=== PATIENT | female | born 1970 | race Caucasian/White ===

== ENCOUNTER 2018-03-16 14:42 | Outpatient (REF) | payer OTHER, SELFPAY ==
[2018-03-16 18:53] LABS: TSH 19.21 uIU/mL (0.358-3.74)
== END 2018-03-16 15:02 ==
LOC: NCHCN 14:42
PROVIDERS: PCP Physician Assistant; Visit Provider Nurse Practitioner Family
DX: E03.9 Hypothyroidism, unspecified (principal)
CPT/HCPCS: 84443

== ENCOUNTER 2018-04-27 14:53 | Outpatient (REF) | payer OTHER, SELFPAY ==
[2018-04-27 19:56] LABS: FREE T4 1.49 ng/dL (0.76-1.46)
[2018-04-28 16:40] LABS: T3, Total 135 ng/dl (97-169)
== END 2018-04-27 15:13 ==
LOC: NCHCN 14:53
PROVIDERS: PCP Physician Assistant; Visit Provider Nurse Practitioner Family
DX: E03.9 Hypothyroidism, unspecified (principal)
CPT/HCPCS: 84439; 84443; 84480

== ENCOUNTER 2018-05-29 09:53 | Outpatient (REF) | payer OTHER, SELFPAY ==
--- NOTE | 2018-05-29 08:45 | PAPFT_PTH ---
PATIENT: Gardenia Machado LOC: [facility] U#:[id number] AGE/SX: 48/F ROOM: RE05/29/[address]: Heidy Aly : 1970 BED: DIS: 05/29/2018 SPEC #: [id number] RECD: 05/30/18 13:19 STATUS: NED REQ #: [id number] JOSEPH: 05/29/18 08:[address]: Heidy Aly DEPT: [facility] Cytology RECD BY: Tori Brewer ENTERED: 05/30/18 13:19 SP TYPE: PAPFT OTHR DR: Arnaldo Darden Tissues: 1 - CX/ENDOCX FOR PAP SMEARS Procedures: PAP THIN PREP/[facility] Screening HPV DNA PROBE Comments: [id number]
[2018-05-29 19:21] LABS: TSH 2.28 uIU/mL (0.358-3.74)
== END 2018-05-29 10:13 ==
LOC: NCHCN 09:53
PROVIDERS: PCP Physician Assistant; Visit Provider Nurse Practitioner Family
DX: E03.9 Hypothyroidism, unspecified (principal); Z12.4 Encounter for screening for malignant neoplasm of cervix; Z11.51 Encounter for screening for human papillomavirus (HPV); Z01.419 Encounter for gynecological examination (general) (routine) without abnormal findings
CPT/HCPCS: 88142; 84443; 87624

== ENCOUNTER 2018-10-30 08:59 | Outpatient (REF) | payer BC, SELFPAY ==
[2018-10-30 19:47] LABS: Calculated LDL 95 mg/dL; Cholesterol 187 mg/dL (50-200); Glucose 92 mg/dL (70-100); HDL Cholesterol 78 mg/dL (40-60); Triglyceride 74 mg/dL (30-150)
== END 2018-10-30 09:19 ==
LOC: NCHCN 08:59
PROVIDERS: PCP Physician Assistant; Visit Provider Nurse Practitioner Family
DX: E78.5 Hyperlipidemia, unspecified (principal); E03.9 Hypothyroidism, unspecified
CPT/HCPCS: 80061; 82947; 83721; 84443

== ENCOUNTER 2019-01-29 10:20 | Outpatient (REF) | payer BC, SELFPAY ==
[2019-01-29 19:44] LABS: TSH 1.25 uIU/mL (0.36-3.74)
== END 2019-01-29 10:40 ==
LOC: NCHCN 10:20
PROVIDERS: PCP Nurse Practitioner Family; Visit Provider Nurse Practitioner Family
DX: E03.9 Hypothyroidism, unspecified (principal)
CPT/HCPCS: 84443

== ENCOUNTER 2019-03-19 16:43 | Outpatient (REF) | payer OTHER, SELFPAY ==
[2019-03-19 19:34] LABS: TSH 1.31 uIU/mL (0.36-3.74)
== END 2019-03-19 17:03 ==
LOC: NCHCN 16:43
PROVIDERS: PCP Nurse Practitioner Family; Visit Provider Nurse Practitioner Family
DX: E03.9 Hypothyroidism, unspecified (principal)
CPT/HCPCS: 84443

== ENCOUNTER 2019-06-14 10:53 | Outpatient (REF) | payer OTHER, SELFPAY ==
[2019-06-14 19:15] LABS: TSH 0.49 uIU/mL (0.36-3.74)
== END 2019-06-14 11:13 ==
LOC: NCHCN 10:53
PROVIDERS: PCP Nurse Practitioner Family; Visit Provider Nurse Practitioner Family
DX: E03.9 Hypothyroidism, unspecified (principal)
CPT/HCPCS: 84443

== ENCOUNTER 2020-04-03 13:54 | Outpatient (REF) | payer OTHER, SELFPAY ==
[2020-04-03 19:27] LABS: TSH 0.15 uIU/mL (0.36-3.74)
== END 2020-04-03 14:14 ==
LOC: NCHCN 13:54
PROVIDERS: PCP Nurse Practitioner Family; Visit Provider Nurse Practitioner Family
DX: E03.9 Hypothyroidism, unspecified (principal); E78.5 Hyperlipidemia, unspecified
CPT/HCPCS: 84443

== ENCOUNTER 2020-05-21 10:11 | Outpatient (REF) | payer OTHER, SELFPAY ==
[2020-05-21 15:54] LABS: TSH 6.45 uIU/mL (0.36-3.74)
== END 2020-05-21 10:12 | disposition home or self-care (01) ==
LOC: NCHCN 10:11
PROVIDERS: PCP Nurse Practitioner Family; Visit Provider Nurse Practitioner Family
DX: E03.9 Hypothyroidism, unspecified (principal)
CPT/HCPCS: 84443

== ENCOUNTER 2020-12-24 13:07 | Outpatient (REF) | payer OTHER, SELFPAY ==
--- OUTSIDE RECORDS SUMMARY | 2020-12-24 13:12 | XMS_ITS ---
:1970 Author Care Team Providers Name Role Phone Chris Jimenez Primary Care Provider Unavailable Allergies None recorded. Medications Name Status Start Date Stop Date ? ? levothyroxine 200 mcg tablet Active ? Not available levothyroxine 25 mcg tablet Active ? Not available Microgestin FE 04/02 (28) 1 Active ? Not a vailable mg-20 mcg (21)/75 mg (7) tablet Ortho Tri-Cyclen LO (28) 0.18 mg/0.215 mg/0.25 mg-25 mcg tab let Completed 12/18/2014 12/18/2014 1 (one) Tablet: daily piroxicam 10 mg capsule Active ? Not avai lable Take 1 capsule every 12 hours by oral route as needed. Provera 10 mg tablet Completed 11/11/2014 12/11/2014 1 (one) Tablet: daily TriNessa (28) 0.18 mg(7)/0.215 mg(7)/0.25 mg(7)-35 mcg table t Completed 02/18/2010 09/23/2014 1 (one) Tablet: daily Problems Name Status Onset Date Source ? Menopausal and Postmenopausal Disorders Active ? History Screening Mammography Active ? History Cyst of Left Ovary Active ? History SNOMED CT Concept Active ? History Procedure Active ? History Follow-up Visit Active ? History Female Genitalia Finding Active ? History Procedures Date Name Performed by ? 12/28/2018 XR, Pelvis, 1 or 2 View [facility] spital Radiology (Internal) [address] [place] [address] (Work Place) Results Lab Results Date Name Specimen Result Interpretation Description Value Range Status Address ? 10/27/2016 Venipuncture BLD ? Venpn* ? ? Final [facility] (Internal) : [address] 10/27/2016 beta-HCG, S ? HCG, <2.4 2.0- Final [facility] Quantitative, Quant [IU] 6.0 Hos pital Lab Serum or Plasma /mL [IU] ( Internal): /mL [address] [place] Past Encounters 10/22/2019 Trochanteric Bursitis of Left Hip; Pain of Left Hip Joint Shani Goodwin, PT: [address] [facility] [address], [place] [address], Ph. Social History None recorded. Vaccine List None recorded. Plan of Care Reminders Provider Appointments None ? ? recorded. Lab None ? ? recorded. Referral None ? ? recorded. Procedures None ? ? recorded. Surgeries None ? ? recorded. Imaging None ? ? recorded. Vitals 03/09/2019 10:30AM Follow Up 15 Height Weight 162.56 cm 12/28/2018 08:30AM Consult 30 Height Weight BMI Blood Pressure 162.56 cm 102.51 kg 38.8 kg/m2 148/98 mm[Hg] 11/25/2016 Weight Blood Pressure 104.81 kg 130/64 mm[Hg] 10/21/2016 Height Weight Blood Pressure 165.74 cm 102.17 kg 132/80 mm[Hg] 09/23/2016 Height Weight Blood Pressure 165.74 cm 101.72 kg 110/82 mm[Hg] 11/04/2014 Height Weight Blood Pressure 165.74 cm 103.65 kg 106/92 mm[Hg] 02/18/2010 Weight Blood Pressure 110.22 kg 144/80 mm[Hg] 05/21/2009 Height Weight Blood Pressure 163.83 cm 109.77 kg 144/80 mm[Hg] 01/30/2009 Height Weight Blood Pressure 162.56 cm 111.58 kg 130/70 mm[Hg] 09/09/2005 Height Weight Blood Pressure 162.56 cm 113.4 kg 120/70 mm[Hg]
[2020-12-24 21:26] LABS: Hemoglobin A1C 5.7 % (<5.7)
[2020-12-24 21:30] LABS: ALT 31 U/L (14-59); AST 15 U/L (15-37); Albumin 4.1 g/dL (3.4-5.0); Alkaline Phosphatase 77 U/L (46-116); Anion Gap 7.5 mmol/L (3-11); BUN 15 mg/dL (7-18); Bilirubin, Total 0.5 mg/dL (0.2-1.0); CO2 27.5 mmol/L (21.0-32.0); CREATININE 0.7 mg/dL (0.55-1.02); Calculated LDL 121 mg/dL (<100); Chloride 104 mmol/L (98-107); Cholesterol 214 mg/dL (<200); Glucose 98 mg/dL (74-106); HDL Cholesterol 81 mg/dL (40-60); Sodium 139 mmol/L (136-145); TSH (W/Ref FT4) 1.99 uIU/mL (0.36-3.74); Total Protein 7.4 g/dL (6.4-8.2); Triglyceride 60 mg/dL (<150)
== END 2020-12-24 13:08 | disposition home or self-care (01) ==
LOC: NCHCN 13:07
PROVIDERS: PCP Nurse Practitioner Family; Visit Provider Nurse Practitioner Family
DX: E03.9 Hypothyroidism, unspecified (principal)
CPT/HCPCS: 80053; 80061; 83036; 84443

== ENCOUNTER 2022-01-11 19:43 | Outpatient (REF) | payer OTHER, SELFPAY ==
[2022-01-11 19:31] LABS: Hemoglobin A1C 5.6 % (<5.7)
[2022-01-11 20:08] LABS: ALT 26 U/L (14-59); AST 23 U/L (15-37); Albumin 3.8 g/dL (3.4-5.0); Alkaline Phosphatase 74 U/L (46-116); Anion Gap 9.3 mmol/L (3-11); BUN 10 mg/dL (7-18); Bilirubin, Total 0.4 mg/dL (0.2-1.0); CO2 23.7 mmol/L (21.0-32.0); CREATININE 0.7 mg/dL (0.55-1.02); Calcium 8.6 mg/dL (8.5-10.1); Chloride 106 mmol/L (98-107); Estimated GFR 103.35 (mL/min/1.73m2); Glucose 86 mg/dL (74-106); Potassium 4.4 mmol/L (3.5-5.1); Sodium 139 mmol/L (136-145); TSH 17.15 uIU/mL (0.36-3.74); Total Protein 7.5 g/dL (6.4-8.2)
== END 2022-01-11 19:44 | disposition home or self-care (01) ==
LOC: NCHCN 19:43
PROVIDERS: PCP Nurse Practitioner Family; Visit Provider Nurse Practitioner Family
DX: E03.9 Hypothyroidism, unspecified (principal); E78.5 Hyperlipidemia, unspecified; R73.03 Prediabetes
CPT/HCPCS: 80053; 83036; 84443

== ENCOUNTER 2023-01-11 13:33 | Outpatient (REF) | payer OTHER, SELFPAY ==
[2023-01-11 20:21] LABS: ALT 40 U/L (14-59); AST 23 U/L (15-37); Albumin 3.8 g/dL (3.4-5.0); Alkaline Phosphatase 82 U/L (46-116); Anion Gap 9.4 mmol/L (3-11); BUN 15 mg/dL (7-18); Bilirubin, Total 0.3 mg/dL (0.2-1.0); CO2 23.6 mmol/L (21.0-32.0); CREATININE 0.7 mg/dL (0.55-1.02); Calcium 9.2 mg/dL (8.5-10.1); Calculated LDL 116 mg/dL (<100); Chloride 104 mmol/L (98-107); Cholesterol 202 mg/dL (<200); Estimated GFR 102.71 (mL/min/1.73m2); Glucose 99 mg/dL (74-106); HDL Cholesterol 74 mg/dL (40-60); Potassium 4.6 mmol/L (3.5-5.1); Sodium 137 mmol/L (136-145); TSH (W/Ref FT4) 2.64 uIU/mL (0.36-3.74); Total Protein 7.4 g/dL (6.4-8.2); Triglyceride 63 mg/dL (<150)
== END 2023-01-11 13:34 | disposition home or self-care (01) ==
LOC: NCHCN 13:33
PROVIDERS: PCP Nurse Practitioner Family; Visit Provider Nurse Practitioner Family
DX: E03.9 Hypothyroidism, unspecified (principal); R73.03 Prediabetes
CPT/HCPCS: 80053; 80061; 84443

== ENCOUNTER 2024-01-16 10:41 | Outpatient (REF) | payer OTHER, SELFPAY ==
--- NOTE | 2024-01-16 08:30 | PAPFT_PTH ---
PATIENT: Gardenia Machado LOC: [facility]#:[id number] AGE/SX: 53/F ROOM: RE01/16/[address]: Althea Underwood : 1970 BED: DIS: 01/16/2024 SPEC #: [id number] RECD: 01/16/24 18:13 STATUS: NED REQ #: [id number] JOSEPH: 01/16/24 08:[address] Cytology RECD BY: Tori Brewer ENTERED: 01/16/24 18:14 SP TYPE: PAPFT OTHR DR: Heidy Aly Tissues: 1 - CX/ENDOCX FOR PAP SMEARS Procedures: PAP THIN PREP/[facility] Screening HPV DNA PROBE Comments: [id number] (HPV 16 & 18/45)
--- OUTSIDE RECORDS SUMMARY | 2024-01-16 10:48 | XMS_ITS | Encounter Summary ---
Author Organization [facility] Address [address] [place] [address] Care Team Providers Care Nurse Aide Evaluator Name Role Phone Unknown, Provider Primary Care Provider Unava ilable Encounter Details Date Type Department Care Team (Late st Contact Info) Description 04/17/2012 Results Only [facility] [phone] Daniella Platt PA-C [address] [place] [address] Social History Tobacco Use Types Packs/Day Years Used Date Smoking Tobacco: Never Assessed Sex and Gender Information Value Date Recorded Sex Assigned at Not on file Gender Identity Not on file Sexual Orientation Not on file documented as of this encounter Plan of Treatment Not on file documented as of this encounter Procedures Procedure Name Priority Date/Time Associated Diagnosis Comments PAP TEST- RESULT ONLY Routine 04/17/2012 0:00 EST documented in this encounter Results * PAP TEST- RESULT ONLY (04/17/2012 0:00 EST) Pathology Report: CYTOPATHOLOGY REPORT Reports generated via electronic interface contain original data; however they are lacking the format of the original report. Caution should be taken when reading/interpreti ng unformatted reports. Name: ? GARDENIA WEBSTER ? Accession #: ? [id number] : ? 1970 (Age: 42) ??F ?Collect Date: ? 04/17/2012 Location: ? [facility] ? Receive Date: ? 04/18/2012 Provider: ?DANIELLA PINEDA Copy to: ? Specimen/Source: ?Pap Test, Cervix, ThinPrep Imaging System with manual evaluation Last Menstrual Period: ? 04/08/12 Previous Gynecologic Pathology: ? HPV: + Treatment History: ? Cone biopsy: hx ? SPECIMEN ADEQUACY ? Satisfactory for Evaluation - transformation zone component present GENERAL CATEGORIZATION ? Negative for Intraepithelial Lesion or Malignancy ? Document reviewed and electronically signed by: ? Danni Driver CT(ASCP) ? Report Date: ??04/24/2012 14:41 End of Report [facility] 04/17/2012 04/18/2012 Daniella Platt PA-C PATHOLOGY ORDERABLES [facility] [address] [place] [address] documented in this encounter Visit Diagnoses Not on filedocumented in this encounter Care Teams Nurse Aide Evaluator Relationship Specialty Start Date End Date Unknown, Provider, PCP - General 02/03/09 documented as of this encounter
--- OUTSIDE RECORDS SUMMARY | 2024-01-16 10:48 | XMS_ITS | Encounter Summary ---
Author Organization [facility] Address [address] [place] [id number] Care Team Providers Care School Laboratory Technician Name Role Phone Unknown, Provider Primary Care Provider Unava ilable Encounter Details Date Type Department Care Team (Latest Contact Info) Description 11/01/2014 8:05 EDT - 11/01/2014 23:59 EDT Hospital Encounter [address] [address] Unknown, ProviderMD Discharge Disposition: Home or Self Care Social History Tobacco Use Types Packs/Day Years Used Date Smoking Tobacco: Never Assessed Sex and Gender Information Value Date Recorded Sex Assigned at Not on file Gender Identity Not on file Sexual Orientation Not on file documented as of this encounter Discharge Disposition Disposition Code Departure Means Destination Home or Self Senior Care documented in this encounter Plan of Treatment Not on file documented as of this encounter Visit Diagnoses Not on filedocumented in this encounter Care Teams School Laboratory Technician Relationship Specialty Start Date End Date Unknown, ProviderMD PCP - General 02/03/09 documented as of this encounter
--- OUTSIDE RECORDS SUMMARY | 2024-01-16 10:48 | XMS_ITS | Encounter Summary ---
Author Organization [facility] Address [address] [place] [address] Care Team Providers Care Keno Terminal Operator Name Role Phone Unknown, Provider Primary Care Provider Unava ilable Encounter Details Date Type Department Care Team (Late st Contact Info) Description 05/29/2018 Results Only [facility] [phone] Lesly Aly, DIRECTOR OF ANCILLARY SERVICES [address] [place] [address] Social History Tobacco Use Types Packs/Day Years [...] Diagnosis Comments PAP TEST- RESULT ONLY Routine 05/29/2018 0:00 EDT documented in this encounter Results * PAP TEST- RESULT ONLY (05/29/2018 0:00 EDT) Pathology Report: CYTOPATHOLOGY REPORT Reports generated via electronic interface contain original data; however they are lacking the format of the original report. Caution should be taken when reading/interpreti ng unformatted reports. Name: ? GARDENIA WEBSTER ? Accession #: ? [id number] ? : ? 1970 (Age: 48) ??F ?Collect Date: ? 05/29/2018 ? Location: ? [facility] ? Receive Date: ? 05/31/2018 ? Provider: LESLY ALY DIRECTOR OF ANCILLARY SERVICES Copy to: ? Final Report SPECIMEN ADEQUACY ? Satisfactory for Evaluation - transformation zone component absent GENERAL CATEGORIZATION ? Negative for Intraepithelial Lesion or Malignancy ?? Last Menstrual Period: 05/01/2018 Previous Gynecologic Pathology: Yes: Hx of abnormal pap Treatment History: Ablation: Uterine 2017 Other: Additional clinical information: Z01.419 Specimen/Source: ??Pap Test, Cervix, ThinPrep Imaging System with manual evaluation Document reviewed and electronically signed by: ? KRISTIN Shirley(ASCP) ? Report ??Date: 06/02/2018 08:54 HPV with Pap Test ? Date Ordered: ? 06/02/2018 ? Status: ?? Signed Out ?Date Complete: ? 06/05/2018 ? By: ??System Interface ? Date Reported: ? 06/05/2018 ? Interpretation RESULT: Negative for HPV. No E6 or E7 mRNA is detected from HPV types 16,18,31,33,35, 39,45,51,52,56,58, 59,66, and 68 by spa associate mediated amplification. Comments Document reviewed and electronically signed by: ? System Interface ? Report date: 06/05/2018 By the signature above, the attending physician certifies that he/she has personally conducted a gross and/or microscopic examination of the described specimens and rendered or confirmed the above diagnosis. End of Report [facility] 05/29/2018 05/31/2018 Lesly Aly NP PATHOLOGY ORDERABLES [facility] [address] [place] [address] documented in this encounter Visit Diagnoses Not on filedocumented in this encounter Care Teams Keno Terminal Operator Relationship Specialty Start Date End Date Unknown, Provider, PCP - General 02/03/09 documented as of this encounter
--- OUTSIDE RECORDS SUMMARY | 2024-01-16 10:48 | XMS_ITS | Clinical Summary ---
Author Organization [facility] Address [address] [place] [address] Care Team Providers Care Cam Specialist Name Role Phone Unknown, Provider MD Primary Care Provider Unava ilable Social History Tobacco Use Types Packs/Day Years Used Date Smoking Tobacco: Never Assessed Sex and Gender Information Value Date Recorded Sex Assigned at Not on file Gender Identity Not on file Sexual Orientation Not on file Plan of Treatment Health Maintenance Due Date Last Done Comments Hepatitis C Screen 1970 Hepatitis B Vaccine (1 of 3 - 19+ 3-dose series) 03/18 COVID-19 Vaccine (2022- season) 2022 Care Teams Cam Specialist Relationship Specialty Start Date End Date Unknown, Provider, PCP - General 02/03/09
--- OUTSIDE RECORDS SUMMARY | 2024-01-16 10:48 | XMS_ITS | Referral Summary ---
Author Organization [facility] Address [address] [place] [address] Care Team Providers Care Events Solutions Consultant Name Role Phone Unknown, Provider Primary Care Provider Unava ilable Social History Tobacco Use Types Packs/Day Years Used Date Smoking Tobacco: Never Assessed Sex and Gender Information Value Date Recorded Sex Assigned at Not on file Gender Identity Not on file Sexual Orientation Not on file Plan of Treatment Not on file Care Teams Events Solutions Consultant Relationship Specialty Start Date End Date Unknown, Provider, PCP - General 02/03/09
--- OUTSIDE RECORDS SUMMARY | 2024-01-16 10:48 | XMS_ITS | Encounter Summary ---
Author Organization [facility] Address [address] [place] [address] Care Team Providers Care Boarding Kennel Or Cattery Operator Name Role Phone Unknown, Provider MD Primary Care Provider Unava ilable Encounter Details Date Type Department Care Team (Late st Contact Info) Description 11/04/2014 Results Only [facility] [phone] Vincent Beltran MD [address] [place] [address] [address] [place] [address] Social History Tobacco Use Types Packs/Day Years Used Date Smoking Tobacco: Never Assessed Sex and Gender Information Value Date Recorded Sex Assigned at Not on file Gender Identity Not on file Sexual Orientation Not on file documented as of this encounter Plan of Treatment Not on file documented as of this encounter Procedures Procedure Name Priority Date/Time Associated Diagnosis Comments SURGICAL PATHOLOGY Routine 11/04/2014 9 :43 EDT documented in this encounter Results * SURGICAL PATHOLOGY (11/04/2014 9:43 EDT) Pathology Report: SURGICAL PATHOLOGY REPORT Reports generated via electronic interface contain original data; however they are lacking the format of the original report. Caution should be taken when reading/interpret ing unformatted reports. Name: ? GARDENIA WEBSTER ? Accession #: ? [id number] ? : ? 1970 (Age: 44) ??F ? Collect Date: ? 11/04/2014 ? Location: ? [facility] ? Receive Date: ? 11/06/2014 ? Provider: VINCENT BELTRAN MD Copy to: ? Final Pathologic Diagnosis: ENDOMETRIUM, BIOPSY: - ??Disordered proliferative endometrium with focal glandular and stromal breakdown. Document reviewed and electronically signed by: Layla Hair MD Report ??Date: 11/09/2014 10:51 By the signature above, the attending physician certifies that he/she has personally conducted a gross and/or microscopic examination of the described specimens and rendered or confirmed the above diagnosis. Specimen(s) Received: Endometrium Clinical History: Heavy, prolonged bleeding Gross Description: ? Received in formalin labelled with proper patient identification (initials W, M) and endometrium is an aggregate of england-pink, tissue fragments admixed with clotted blood and blood tinged mucus (3.5 x 2.5 x 0.4 cm). Submitted in toto in blocks 1-4. Tanya Mccord 11/06/2014 10:10 AM End of Report [facility] 11/04/2014 9:43 EDT 11/06/2014 9:43 EDT Vincent Beltran MD PATHOLOGY ORDERABLES Performing Organization Address City/State/[facility] Co de Phone Number [facility] [address] [place] [address] documented in this encounter Visit Diagnoses Not on filedocumented in this encounter Care Teams Boarding Kennel Or Cattery Operator Relationship Specialty Start Date End Date Unknown, Provider, PCP - General 02/03/09 documented as of this encounter
--- OUTSIDE RECORDS SUMMARY | 2024-01-16 10:49 | XMS_ITS | Encounter Summary ---
Author Organization [facility] Address [address] [place] [address] Care Team Providers Care Garment Parts Cutter Hand Name Role Phone Unknown, Provider Primary Care Provider Unava ilable Encounter Details Date Type Department Care Team (Late st Contact Info) Description 04/03/2009 Orders Only [facility] [address] [place] [address] Jones Vega MD Social History Tobacco Use Types Packs/Day Years Used Date Smoking Tobacco: Never Assessed Sex and Gender Information Value Date Recorded Sex Assigned at Not on file Gender Identity Not on file Sexual Orientation Not on file documented as of this encounter Plan of Treatment Not on file documented as of this encounter Procedures Procedure Name Priority Date/Time Associated Diagnosis Comments CYTOPATHOLOGY Routine 04/03/2009 0:00 EST documented in this encounter Results * CYTOPATHOLOGY (04/03/2009 0:00 EST) Pathology Report: CYTOPATHOLOGY REPORT ? Reports generated via electronic interface contain original data; ? however they are lacking the format of the original report. ? Caution should be taken when reading/interpreti ng unformatted reports. ? Name: ? GARDENIA WEBSTER ? Accession #: ? [id number] ? : ? 1970 (Age: 39) ??F ?Collect Date: ? 04/03/2009 ? Location: ? [facility] ? Receive Date: ? 04/04/2009 ? Provider: ?JONES B VEGA MD ? Copy to: ? Specimen/Source: ?Pap Test, Cervix/Endocervix, ThinPrep Imaging System ? with manual evaluation ? Last Menstrual Period: ? Previous Gynecologic Pathology: ? HSIL: 11/09 ? HPV: HR 11/09 ? Other: ? HPVA - HPV testing requested if ASC-US on the current ThinPrep Pap test. ? SPECIMEN ADEQUACY ? - scant squamous epithelial component secondary to excessive blood ? Satisfactory for Evaluation ? - transformation zone component present ? GENERAL CATEGORIZATION ? Epithelial Cell Abnormality ? INTERPRETATION ? Squamous Cell Abnormality - Atypical squamous cells, cannot exclude ? high grade squamous ? intraepithelial lesion (ASC-H). ? EDUCATIONAL NOTES/RECOMMENDATI ONS ? [facility] recommends following the 2006 Consensus Guidelines for the Management of Women with Abnormal Cervical Cancer Screening Tests (JLGTD, ? 2007;11(4):201-222 ). ??Consensus guidelines are available online at ? www.ASCCP.org. ? Document reviewed and electronically signed by: ? Selena L. Montesinos, MD ? Report Date: ??04/09/2009 12:02 ? End of Report ? [facility] 04/03/2009 04/04/2009 Jones Vega MD PATHOLOGY ORDERABLES [facility] [address] [place] [address] documented in this encounter Visit Diagnoses Not on filedocumented in this encounter Care Teams Garment Parts Cutter Hand Relationship Specialty Start Date End Date Unknown, Provider, PCP - General 02/03/09 documented as of this encounter
--- OUTSIDE RECORDS SUMMARY | 2024-01-16 10:49 | XMS_ITS | Encounter Summary ---
Author Organization [facility] Address [address] [place] [address] Care Team Providers Care Bessemer Bottom Maker Name Role Phone Unknown, Provider Primary Care Provider Unava ilable Encounter Details Date Type Department Care Team (Late st Contact Info) Description 02/18/2010 Results Only [facility] ([facility] [address] [place] [address] Jones Vega MD Social History Tobacco [...] Priority Date/Time Associated Diagnosis Comments CYTOPATHOLOGY Routine 02/18/2010 0:00 EST documented in this encounter Results * CYTOPATHOLOGY (02/18/2010 0:00 EST) Pathology Report: CYTOPATHOLOGY REPORT ? Reports generated via electronic interface contain original data; ? however they are lacking the format of the original report. ? Caution should be taken when reading/interpreti ng unformatted reports. ? Name: ? GARDENIA WEBSTER ? Accession #: ? [id number] ? : ? 1970 (Age: 39) ??F ?Collect Date: ? 02/18/2010 ? Location: ? [facility] ? Receive Date: ? 02/19/2010 ? Provider: JONES VEGA MD ? Copy to: ? Final Report ? SPECIMEN ADEQUACY ? Satisfactory for Evaluation ? - transformation zone component present ? - scant squamous epithelial component secondary to excessive blood ? GENERAL CATEGORIZATION ? Other, see interpretation ? INTERPRETATION ? Endometrial cells present in a woman equal to or greater than age 40. ? Negative for Intraepithelial Lesion. ? EDUCATIONAL NOTES/RECOMMENDATI ONS ? Benign appearing endometrial cells on Pap tests are usually a normal ? finding in women with regular menstrual cycles, especially if the Pap test was ?? collected during the first half of the menstrual cycle. ? There is data showing that endometrial cells on Pap tests may be associated with endometrial/uterin e abnormalities in post menopausal women or in perimenopausal women with abnormal bleeding. ? There is limited data on the significance of benign endometrial cells in post ?? menopausal women on HRT. ??Clinical correlation is recommended. ? Note: ??The Pap test is not an accurate test for the screening of endometrial ? lesions and should not be used as a follow up in patients with clinical ? suspicion of endometrial pathology. ? Previous Gynecologic Pathology: HSIL: 11/09 ? HPV: + HR HPV 11/09 ? JACQUELINE II: 1/10 ? JACQUELINE III: 1/10 ? Treatment History: Colposcopy: 1/10 ? Cone biopsy: 3/10 - no dysplasia ? Specimen/Source: ??Pap Test, Cervix/Endocervix, ThinPrep Imaging System with ? manual evaluation ? Document reviewed and electronically signed by: ? Alis Caballero, CT(ASCP)(IAC) ? Report ??Date: 02/24/2010 15:47 ? HPV with Pap Test ? Date Ordered: ? 02/24/2010 ? Status: ?? Signed Out ?Date Complete: ? 03/02/2010 ? By: ??System Interface ? Date Reported: ? 03/02/2010 ? Interpretation ? RESULT: Negative for HPV types 16, 18, 31, 33, 35, 39, 45, 51, 52, ? 56, 58, 59, and 68. ? Comments ? Document reviewed and electronically signed by: ? System Interface ? Report date: 03/02/2010 ? By the signature above, the attending physician certifies that he/she has ? personally conducted a gross and/or microscopic examination of the described ? specimens and rendered or confirmed the above diagnosis. ? End of Report ? [facility] 02/18/2010 02/19/2010 Jones Vega MD PATHOLOGY ORDERABLES [facility] [address] [place] [address] documented in this encounter Visit Diagnoses Not on filedocumented in this encounter Care Teams Bessemer Bottom Maker Relationship Specialty Start Date End Date Unknown, Provider, PCP - General 02/03/09 documented as of this encounter
--- OUTSIDE RECORDS SUMMARY | 2024-01-16 10:49 | XMS_ITS | Encounter Summary ---
Author Organization [facility] Address [address] [place] [address] Care Team Providers Care Hot Molder Name Role Phone Unknown, Provider Primary Care Provider Unava ilable Encounter Details Date Type Department Care Team (Late st Contact Info) Description 01/30/2009 Orders Only [facility] Services - [facility] ([facility]) [address] [place] [address] [phone] Jones Vega MD Social History Tobacco Use Types Packs/Day Years Used Date Smoking Tobacco: Never Assessed Sex and Gender Information Value Date Recorded Sex Assigned at Not on file Gender Identity Not on file Sexual Orientation Not on file documented as of this encounter Plan of Treatment Not on file documented as of this encounter Procedures Procedure Name Priority Date/Time Associated Diagnosis Comments HPV DETECTION, HIGH RISK TYPES Routine 01/30/2009 9:05 EST CYTOPATHOLOGY Routine 01/30/2009 0:00 EST documented in this encounter Results * HUMAN PAPILLOMA VIRUS DNA TEST (01/30/2009 9:05 EST) Specimen Description Cervix, ThinPrep vial [facility] Result Positive for one or more of HPV types 16,18,31,33,35 ,39,45,51,52,5 6,58,59, or 68. These high/intermedi ate risk HPV types are associated with dysplasia and some cervical cancers. [facility] Report Status Final 02/18/2009 [facility] 01/30/2009 9:05 EST 02/12/2009 9:05 EST Jones Vega MD MICROBIOLOGY - GENER AL ORDERABLES [facility] [address] [place] [address] * CYTOPATHOLOGY (01/30/2009 0:00 EST) Pathology Report: CYTOPATHOLOGY REPORT ? Reports generated via electronic interface contain original data; ? however they are lacking the format of the original report. ? Caution should be taken when reading/interpreti ng unformatted reports. ? Name: ? GARDENIA WEBSTER ? Accession #: ? [id number] ? : ? 1970 (Age: 38) ??F ?Collect Date: ? 01/30/2009 ? Location: ? [facility] ? Receive Date: ? 02/03/2009 ? Provider: ?JONES B VEGA MD ? Copy to: ? Specimen/Source: ?Pap Test, Cervix/Endocervix, ThinPrep Imaging System ? with manual evaluation ? Last Menstrual Period: ? Other: ? HPVDX - HPV testing requested regardless of diagnosis on current ThinPrep Pap ?? test. ? SPECIMEN ADEQUACY ? Satisfactory for Evaluation ? - transformation zone component present ? GENERAL CATEGORIZATION ? Epithelial Cell Abnormality ? INTERPRETATION ? Squamous Cell Abnormality - High grade squamous intraepithelial lesion ? (HSIL). ? EDUCATIONAL NOTES/RECOMMENDATI ONS ? ON LICENSE OF [facility] recommends following the 2006 Consensus Guidelines for the Management of Women with Abnormal Cervical Cancer Screening Tests (JLGTD, ? 2007;11(4):201-222 ). ??Consensus guidelines are available online at ? www.ASCCP.org. ? Document reviewed and electronically signed by: ? Ever Chris Sony, MD ? Report Date: ??02/11/2009 16:30 ? End of Report ? [facility] 01/30/2009 02/03/2009 Jones Vega MD PATHOLOGY ORDERABLES [facility] [address] [place] [address] documented in this encounter Visit Diagnoses Not on filedocumented in this encounter Care Teams Hot Molder Relationship Specialty Start Date End Date Unknown, Provider, PCP - General 02/03/09 documented as of this encounter
== END 2024-01-16 10:42 | disposition home or self-care (01) ==
LOC: NCHCN 10:41
PROVIDERS: PCP Nurse Practitioner Family; Visit Provider Nurse Practitioner Family
DX: Z11.51 Encounter for screening for human papillomavirus (HPV) (principal); Z01.419 Encounter for gynecological examination (general) (routine) without abnormal findings; E03.9 Hypothyroidism, unspecified
CPT/HCPCS: 88142; 84443; 87624

== ENCOUNTER 2024-04-16 15:58 | Outpatient (REF) | payer OTHER, SELFPAY ==
--- OUTSIDE RECORDS SUMMARY | 2024-04-16 16:05 | XMS_ITS | Encounter Summary ---
Author Organization [facility] Address [address] [place] [address] Care Team Providers Care Nail Technician Teacher Name Role Phone Unknown, Provider Primary Care Provider Unava ilable Encounter Details Date Type Department Care Team (Late st Contact Info) Description 01/17/2024 Lab Requisition [facility] Pathology & Laboratory Medicine - [facility] [address] [place] [address] Aylin Underwood, CLINICAL CYTOGENETICIST SCIENTIST [address] [place] [address] Encounter for gynecological examination (general) (routine) without abnormal findings; Encounter for screening for malignant neoplasm of cervix Social History Tobacco Use Types Packs/Day Years Used Date Smoking Tobacco: Never Assessed Comments Unknown Sex and Gender Information Value Date Recorded Sex Assigned at Not on file Legal Sex Female 18:47 EST Gender Identity Not on file Sexual Orientation Not on file documented as of this encounter Plan of Treatment Not on file documented as of this encounter Procedures Procedure Name Priority Date/Time Associated Diagnosis Comments PAP TEST Today 01/16/2024 8:30 EST Encounter for gynecological examination (general) (routine) without abnormal findings Encounter for screening for malignant neoplasm of cervix HUMAN PAPILLOMAVIRUS (HPV) VAGINAL DETECTION WITH GENOTYPING FOR HIGH-RISK TYPES BY PCR Today 01/16/2024 8:30 EST Encounter for gynecological examination (general) (routine) without abnormal findings Encounter for screening for malignant neoplasm of cervix documented in this encounter Results * HUMAN PAPILLOMAVIRUS (HPV) VAGINAL DETECTION WITH GENOTYPING FOR HIGH-RISK TYPES BY PCR (48:30 EST) HPV High Risk Type 16, PCR Negative Negative 02/02/2024 15:50 EST [facility] HPV High Risk type 18, PCR Negative Negative 02/02/2024 15:50 EST [facility] HPV other High Risk types, PCR Negative Negative 02/02/2024 15:50 EST [facility] Comment: The following Other High Risk HPV types were not detected: 31, 33, 35, 39, 45, 51, 52, 56, 58, 59, 66, and 68 ADDITIONAL INFORMATION Testing was performed using the salomón HPV assay ([employer] This report is intended for use in clinical monitoring and management of patients. ??It is not intended for use in medical-legal applications. This test has been modified from the technician's instructions. ??Its performance characteristics were determined by [facility] in a manner consistent with CLIA requirements. ??This test has not been cleared or approved by the U.S. Food and Drug Administration. Test Performed by: [facility] [address] [place] [address] Corporate Specialist: Shi Fowler Ph.D.; CLIA# [id number] Pap Test VAGINAL STRUCTURE / Unknown 01/16/2024 8:30 EST 01/31/2024 11:43 EST us Aylin Underwood NP MICROBIOLOGY - GENERAL ORDER MARÍA Final Result [facility] [address] [place] [address] * PAP TEST (01/16/2024 8:30 EST) Pathologist [facility] Amendment Comment This report is amended to include High Risk HPV testing results. This is an amended report which replaces the original pathology report issued on 02/02/2024. This amendment is being issued to change the submitted source of the Pap test from vaginal to cervix and/or Endocervical 03/05/2024 10:54 EST [facility] Specimens A. Cervix and/or Endocervix , ThinPrep Imaging System with Manual Evaluation 03/05/2024 10:54 [facility] Specimen Adequacy Satisfactory for Evaluation - assessment of transformation zone component not applicable ( e.g. atrophy, vaginal sample, hysterectomy) Satisfactory for Evaluation - transformation zone component present 03/05/2024 10:54 [facility] General Categorization Negative for intraepithelial lesion or malignancy 03/05/2024 10:54 [facility] Attestation . 03/05/2024 10:54 [facility] Amendment electronically signed by Martha Phan CT(ASCP) on 03/05/2024 at 1054 Amendment electronically signed by Martha Phan CT(ASCP) on 02/02/2024 at 1653 at 1330 Clinical History See below 03/05/20 10:54 [facility] Performing Lab [facility] 03/05/2024 10:54 [facility] Scanned Images 03/05/2024 10:54 [facility] HPV High Risk type 16, PCR Negative 03/05/2024 10:54 [facility] HPV High Risk type 18, PCR Negative 03/05/2024 10:54 [facility] HPV Other High Risk Types, PCR Negative The following Other High Risk HPV types were not detected: 31, 33, 35, 39, 45, 51, 52, 56, 58, 59, 66, and 68 --ADDITIONAL INFORMATION------ Testing was performed using the salomón HPV assay ([employer] This report is intended for use in clinical monitoring and management of patients. It is not intended for use in medical-legal applications. This test has been modified from the technician's instructions. Its performance characteristics were determined by [facility] in a manner consistent with CLIA requirements. This test has not been cleared or approved by the U.S. Food and Drug Administration. Test Performed by: [facility] - [address] [address] Corporate Specialist: Shi Fowler Ph.D.; CLIA# [id number] 03/05/2024 10:54 EST [facility] Pap Test CERVIX UTERI STRUCTURE / Unknown 01/16/2024 8:30 EST 01/17/2024 14:36 EST Aylin Underwood NP PATHOLOGY ORDERABLES Edited Result - Final [facility] [address] [place] [address] documented in this encounter Visit Diagnoses Diagnosis Encounter for gynecological examination (general) (routine) without abnormal findings Encounter for screening for malignant neoplasm of cervix Screening for malignant neoplasm of the cervix documented in this encounter Care Teams Nail Technician Teacher Relationship Specialty Start Date End Date Unknown, Provider, PCP - General 02/03/09 documented as of this encounter
--- OUTSIDE RECORDS SUMMARY | 2024-04-16 16:05 | XMS_ITS | Referral Summary ---
Author Organization [facility] Address [address] [place] [address] Care Team Providers Care Mercury Cracking Tester Name Role Phone Unknown, Provider Primary Care Provider Unava ilable Encounters Date Type Department Care Team Description 01/17/2024 Lab Requisition [facility] Pathology & Laboratory Medicine - [facility] [address] [place] [address] Aylin Underwood, REHABILITATION THERAPY TECHNICIAN Encounter for gynecological examination (general) (routine) without abnormal findings; Encounter for screening for malignant neoplasm of cervix from Last 3 Months Social History Tobacco Use Types Packs/Day Years Used Date Smoking Tobacco: Never Assessed Comments Unknown Sex and Gender Information Value Date Recorded Sex Assigned at Not on file Legal Sex Female 18:47 EST Gender Identity Not on file Sexual Orientation Not on file Plan of Treatment Not on file Procedures Procedure Name Priority Date/Time Associated Diagnosis [...] for screening for malignant neoplasm of cervix from Last 3 Months Results * PAP TEST (01/16/2024 8:30 EST) Amendment Comment This report is amended to include High Risk HPV testing results. This is an amended report which replaces the original pathology report issued on 02/02/2024. This amendment is being issued to change the submitted source of the Pap test from vaginal to cervix and/or Endocervical 03/05/2024 10:54 [facility] Specimens A. Cervix and/or Endocervix , ThinPrep Imaging System with Manual Evaluation 03/05/2024 10:54 [facility] Specimen Adequacy Satisfactory for Evaluation - assessment of transformation zone component not applicable ( e.g. atrophy, vaginal sample, hysterectomy) Satisfactory for Evaluation - transformation zone component present 03/05/2024 10:54 [facility] General Categorization Negative for intraepithelial lesion or malignancy 03/05/2024 10:54 [facility] Attestation . 03/05/2024 10:54 [facility] Amendment electronically signed by Martha Phan CT(ASCP) on 03/05/2024 at 1054 Amendment electronically signed by Martha Phan CT(ASCP) on 02/02/2024 at 1653 at 1330 Clinical History See below 03/05/20 10:54 [facility] Performing Lab [facility] 03/05/2024 10:54 [facility] Scanned Images 03/05/2024 10:54 [facility] HPV High Risk type 16, PCR Negative 03/05/2024 10:54 [facility] HPV High Risk type 18, PCR Negative 03/05/2024 10:54 [facility] HPV Other High Risk Types, PCR Negative The following Other High Risk HPV types were not detected: 31, 33, 35, 39, 45, 51, 52, 56, 58, 59, 66, and 68 --ADDITIONAL INFORMATION------ Testing was performed using the salomón HPV assay ([employer] This report is intended for use in clinical monitoring and management of patients. It is not intended for use in medical-legal applications. This test has been modified from the social media job titles's instructions. Its performance characteristics were determined by [facility] in a manner consistent with CLIA requirements. This test has not been cleared or approved by the U.S. Food and Drug Administration. Test Performed by: [facility] - [address] [address] Temporary Help Agency Referral Clerk: Shi Fowler Ph.D.; CLIA# [id number] 03/05/2024 10:54 EST [facility] Pap Test CERVIX UTERI STRUCTURE / Unknown 01/16/2024 8:30 EST 01/17/2024 14:36 EST Aylin Underwood NP PATHOLOGY ORDERABLES Edited Result - Final [facility] [address] [place] [id number] * HUMAN PAPILLOMAVIRUS (HPV) VAGINAL DETECTION WITH GENOTYPING FOR HIGH-RISK TYPES BY PCR (48:30 EST) HPV High Risk Type 16, PCR Negative Negative 02/02/2024 15:50 EST [facility] HPV High Risk type 18, PCR Negative Negative 02/02/2024 15:50 EST [facility] HPV other High Risk types, PCR Negative Negative 02/02/2024 15:50 EST [facility] Comment: The following Other High Risk HPV types were not detected: 31, 33, 35, 39, 45, 51, 52, 56, 58, 59, 66, and 68 ADDITIONAL INFORMATION Testing was performed using the salomón HPV assay ([employer] This report is intended for use in clinical monitoring and management of patients. ??It is not intended for use in medical-legal applications. This test has been modified from the social media job titles's instructions. ??Its performance characteristics were determined by [facility] in a manner consistent with CLIA requirements. ??This test has not been cleared or approved by the U.S. Food and Drug Administration. Test Performed by: [facility] - [address] [address] Temporary Help Agency Referral Clerk: Shi Fowler Ph.D.; CLIA# [id number] Pap Test VAGINAL STRUCTURE / Unknown 01/16/2024 8:30 EST 01/31/2024 11:43 EST us Aylin Underwood NP MICROBIOLOGY - GENERAL ORDER MARÍA Final Result [facility] [address] [place] [address] from Last 3 Months Care Teams Mercury Cracking Tester Relationship Specialty Start Date End Date Unknown, Provider, PCP - General 02/03/09
--- OUTSIDE RECORDS SUMMARY | 2024-04-16 16:05 | XMS_ITS | Encounter Summary ---
Author Organization [facility] Address [address] [place] [address] Care Team Providers Care Carrier Blower Name Role Phone Unknown, Provider Primary Care Provider Unava ilable Encounter Details Date Type Department Care Team (Late st Contact Info) Description 05/29/2018 Results Only [facility] [phone] Lesly Aly, MASTER PLANNER [address] [place] [address] Social History Tobacco Use Types Packs/Day Years [...] ? GARDENIA WEBSTER ? Accession #: ? [id number] ? : ? 1970 (Age: 48) ??F ?Collect Date: ? 05/29/2018 ? Location: ? [facility] ? Receive Date: ? 05/31/2018 ? Provider: LESLY ALY MASTER PLANNER Copy to: ? Final Report SPECIMEN ADEQUACY [...] types 16,18,31,33,35, 39,45,51,52,56,58, 59,66, and 68 by hookman mediated amplification. Comments Document reviewed and electronically signed by: ? System Interface ? Report date: 06/05/2018 By the signature above, the attending physician certifies that he/she has personally conducted a gross and/or microscopic examination of the described specimens and rendered or confirmed the above diagnosis. End of Report [facility] 05/29/2018 05/31/2018 us Lesly Aly MASTER PLANNER PATHOLOGY ORDERABLES Final Res ult [facility] [address] [place] [address] documented in this encounter Visit Diagnoses Not on filedocumented in this encounter Care Teams Carrier Blower Relationship Specialty Start Date End Date Unknown, Provider, PCP - General 02/03/09 documented as of this encounter
--- OUTSIDE RECORDS SUMMARY | 2024-04-16 16:05 | XMS_ITS | Encounter Summary ---
Author Organization [facility] Address [address] [place] [address] Care Team Providers Care Twister Frame Tender Name Role Phone Unknown, Provider MD Primary Care Provider Unava ilable Encounter Details Date Type Department Care Team (Late st Contact Info) Description 11/04/[address] [facility] [phone] Vincent Beltran MD [address] [place] [address] [address] [place] [address] Social History Tobacco Use Types [...] Associated Diagnosis Comments SURGICAL PATHOLOGY Routine 11/04/2014 9:43 EDT documented in this encounter Results * SURGICAL PATHOLOGY (11/04/2014 9:43 EDT) Pathology Report: SURGICAL PATHOLOGY REPORT Reports generated via electronic interface contain original data; however they are lacking the format of the original report. Caution should be taken when reading/interpret ing unformatted reports. Name: ? GARDENIA WEBSTER ? Accession #: ? [id number] ? : ? 1970 (Age: 44) ??F [...] Mccord 11/06/2014 10:10 AM End of Report [facility] 11/04/2014 9:43 EDT 11/06/2014 9:43 EDT us Vincent Beltran MD PATHOLOGY ORDERABLES Final Resul t [facility] [address] [place] [address] documented in this encounter Visit Diagnoses Not on filedocumented in this encounter Care Teams Twister Frame Tender Relationship Specialty Start Date End Date Unknown, Provider, PCP - General 02/03/09 documented as of this encounter
--- OUTSIDE RECORDS SUMMARY | 2024-04-16 16:05 | XMS_ITS | Clinical Summary ---
Author Organization [facility] Address [address] [place] [address] Care Team Providers Care Hopper Attendant Name Role Phone Unknown, Provider Primary Care Provider Unava ilable Encounters Date Type Department Care Team Description 01/17/2024 Lab Requisition [facility] Pathology & Laboratory Medicine - [facility] [address] [place] [address] Aylin Underwood, HOTEL REGISTRATION CLERK Encounter for gynecological examination (general) (routine) without [...] - 19+ 3-dose series) 03/18 COVID-19 Vaccine ( season) 2023 Procedures Procedure Name Priority Date/Time Associated Diagnosis [...] vaginal to cervix and/or Endocervical 03/05/2024 10:54 [facility] Specimens A. Cervix and/or Endocervix , ThinPrep Imaging System with Manual Evaluation 03/05/2024 10:54 [facility] Specimen Adequacy Satisfactory for Evaluation - assessment of transformation zone component not applicable ( e.g. atrophy, vaginal sample, hysterectomy) Satisfactory for Evaluation - transformation zone component present 03/05/2024 10:54 [facility] General Categorization Negative for intraepithelial lesion or malignancy 03/05/2024 10:54 [facility] Attestation . 03/05/2024 10:54 [facility] Amendment electronically signed by Martha Phan CT(ASCP) on 03/05/2024 at 1054 Amendment electronically signed by Martha Phan CT(ASCP) on 02/02/2024 at 1653 at 1330 Clinical History See below 03/05/20 10:54 [facility] Performing Lab [facility] 03/05/2024 10:54 [facility] Scanned Images 03/05/2024 10:54 [facility] HPV High Risk type 16, PCR Negative 03/05/2024 10:54 [facility] HPV High Risk type 18, PCR Negative 03/05/2024 10:54 [facility] HPV Other High Risk Types, PCR Negative The following Other High Risk HPV types were not detected: 31, 33, 35, 39, 45, 51, 52, 56, 58, 59, 66, and 68 --ADDITIONAL INFORMATION------ Testing was performed using the salomón HPV assay ([employer] This report is intended for use in clinical monitoring and management of patients. It is not intended for use in medical-legal applications. This test has been modified from the supervisor matrix's instructions. Its performance characteristics were determined by [facility] in a manner consistent with CLIA requirements. This test has not been cleared or approved by the U.S. Food and Drug Administration. Test Performed by: [facility] - [address] [address] Beveler: Shi Fowler Ph.D.; CLIA# [id number] 03/05/2024 10:54 EST [facility] Pap Test CERVIX UTERI STRUCTURE / Unknown 01/16/2024 8:30 EST 01/17/2024 14:36 EST Aylin Underwood NP PATHOLOGY ORDERABLES Edited Result - Final [facility] [address] [place] [address] * HUMAN PAPILLOMAVIRUS (HPV) VAGINAL DETECTION WITH GENOTYPING FOR HIGH-RISK TYPES BY PCR (48:30 EST) HPV High Risk Type 16, PCR Negative Negative 02/02/2024 15:50 EST [facility] HPV High Risk type 18, PCR Negative Negative 02/02/2024 15:50 EST [facility] HPV other High Risk types, PCR Negative Negative 02/02/2024 15:50 EST [facility] Comment: The following Other High Risk HPV types were not detected: 31, 33, 35, 39, 45, 51, 52, 56, 58, 59, 66, and 68 ADDITIONAL INFORMATION Testing was performed using the salomón HPV assay ([employer] This report is intended for use in clinical monitoring and management of patients. ??It is not intended for use in medical-legal applications. This test has been modified from the supervisor matrix's instructions. ??Its performance characteristics were determined by [facility] in a manner consistent with CLIA requirements. ??This test has not been cleared or approved by the U.S. Food and Drug Administration. Test Performed by: [facility] [address] [place] [address] Beveler: Shi Fowler Ph.D.; CLIA# [id number] Pap Test VAGINAL STRUCTURE / Unknown 01/16/2024 8:30 EST 01/31/2024 11:43 EST us Aylin Underwood NP MICROBIOLOGY - GENERAL ORDER MARÍA Final Result [facility] [address] [place] [address] from Last 3 Months Care Teams Hopper Attendant Relationship Specialty Start Date End Date Unknown, Provider, PCP - General 02/03/09
--- OUTSIDE RECORDS SUMMARY | 2024-04-16 16:05 | XMS_ITS | Encounter Summary ---
Author Organization [facility] Address [address] [place] [address] Care Team Providers Care School Crossing Guard Name Role Phone Unknown, Provider Primary Care Provider Unava ilable Encounter Details Date Type Department Care Team (Latest Contact Info) Description 11/01/2014 8:05 EDT - 11/01/2014 23:59 EDT Hospital Encounter [address] [address] Unknown, ProviderMD Discharge Disposition: Home or Self [...] Code Departure Means Destination Home or Self Shelter documented in this encounter Plan of Treatment Not on file documented as of this encounter Visit Diagnoses Not on filedocumented in this encounter Care Teams School Crossing Guard Relationship Specialty Start Date End Date Unknown, ProviderMD PCP - General 02/03/09 documented as of this encounter
--- OUTSIDE RECORDS SUMMARY | 2024-04-16 16:06 | XMS_ITS | Encounter Summary ---
Author Organization [facility] Address [address] [place] [address] Care Team Providers Care Php Website Developer Name Role Phone Unknown, Provider Primary Care Provider Unava ilable Encounter Details Date Type Department Care Team (Late st Contact Info) Description 01/30/2009 Orders Only [facility] Laboratory Services - [facility] ([facility] [address] [place] [address] Jones Vega MD Social History Tobacco [...] EST) Specimen Description Cervix, ThinPrep vial [facility] Result Positive for one or more of HPV types 16,18,31,33,35 ,39,45,51,52,5 6,58,59, or 68. These high/intermedi ate risk HPV types are associated with dysplasia and some cervical cancers. [facility] Report Status Final 02/18/2009 [facility] 01/30/2009 9:05 EST 02/12/2009 9:05 EST us Jones Vega MD MICROBIOLOGY - GENERAL ORDERAB LES Final Result [facility] [address] [place] [id number] * CYTOPATHOLOGY (01/30/2009 0:00 EST) Pathology Report: CYTOPATHOLOGY REPORT ? Reports generated via electronic interface contain original data; ? however they are lacking the format of the original report. ? Caution should be taken when reading/interpreti ng unformatted reports. ? Name: ? GARDENIA WEBSTER ? Accession #: ? [id number] ? : ? 1970 (Age: 38) ??F [...] ? (HSIL). ? EDUCATIONAL NOTES/RECOMMENDATI ONS ? FORMERLY [facility], [facility] recommends following the 2006 Consensus Guidelines for the Management of Women with Abnormal Cervical Cancer Screening Tests (JLGTD, ? 2007;11(4):201-222 ). ??Consensus guidelines are available online at ? www.ASCCP.org. ? Document reviewed and electronically signed by: ? Ever Chris Sony, MD ? Report Date: ??02/11/2009 16:30 ? End of Report ? [facility] 01/30/2009 02/03/2009 us Jones Vega MD PATHOLOGY ORDERABLES Final Res ult [facility] [address] [place] [address] documented in this encounter Visit Diagnoses Not on filedocumented in this encounter Care Teams Php Website Developer Relationship Specialty Start Date End Date Unknown, Provider, PCP - General 02/03/09 documented as of this encounter
--- OUTSIDE RECORDS SUMMARY | 2024-04-16 16:06 | XMS_ITS | Encounter Summary ---
Author Organization [facility] Address [address] [place] [address] Care Team Providers Care Shroudman Name Role Phone Unknown, Provider Primary Care Provider Unava ilable Encounter Details Date Type Department Care Team (Late st Contact Info) Description 04/03/2009 Orders Only [facility] - [facility] ([facility]) [address] [place] [address] Jones Vega MD Social History Tobacco [...] ? GARDENIA WEBSTER ? Accession #: ? [id number] ? : ? 1970 (Age: 39) ??F [...] lesion (ASC-H). ? EDUCATIONAL NOTES/RECOMMENDATI ONS ? [facility] recommends following the 2006 Consensus Guidelines for the Management of Women with Abnormal Cervical Cancer Screening Tests (JLGTD, ? 2007;11(4):201-222 ). ??Consensus guidelines are available online at ? www.ASCCP.org. ? Document reviewed and electronically signed by: ? Selena L. Montesinos, MD ? Report Date: ??04/09/2009 12:02 ? End of Report ? [facility] 04/03/2009 04/04/2009 us Jones Vega MD PATHOLOGY ORDERABLES Final Res ult [facility] [address] [place] [address] documented in this encounter Visit Diagnoses Not on filedocumented in this encounter Care Teams Shroudman Relationship Specialty Start Date End Date Unknown, Provider, PCP - General 02/03/09 documented as of this encounter
--- OUTSIDE RECORDS SUMMARY | 2024-04-16 16:06 | XMS_ITS | Encounter Summary ---
Author Organization [facility] Address [address] [place] [address] Care Team Providers Care Ultimate Hoops Scoreboard Operator Name Role Phone Unknown, Provider Primary Care Provider Unava ilable Encounter Details Date Type Department Care Team (Late st Contact Info) Description 04/17/2012 Results Only [facility]- [facility] [phone] Daniella Platt PA-C [address] [place] [address] Social History Tobacco Use Types [...] ? GARDENIA WEBSTER ? Accession #: ? [id number] : ? 1970 (Age: 42) ??F ?Collect [...] reviewed and electronically signed by: ? KRISTIN Steve(ASCP) ? Report Date: ??04/24/2012 14:41 End of Report [facility] 04/17/2012 04/18/2012 us Daniella Platt PA-C PATHOLOGY ORDERABLES Final R esult [facility] [address] [place] [address] documented in this encounter Visit Diagnoses Not on filedocumented in this encounter Care Teams Ultimate Hoops Scoreboard Operator Relationship Specialty Start Date End Date Unknown, Provider, PCP - General 02/03/09 documented as of this encounter
--- OUTSIDE RECORDS SUMMARY | 2024-04-16 16:06 | XMS_ITS | Encounter Summary ---
Author Organization [facility] Address [address] [place] [address] Care Team Providers Care Real Estate Lawyer Name Role Phone Unknown, Provider Primary Care Provider Unava ilable Encounter Details Date Type Department Care Team (Late st Contact Info) Description 02/18/2010 Results Only [facility] Laboratory Services - [facility] ([facility] [address] [place] [address] Jones Vega MD Social History Tobacco [...] ? GARDENIA WEBSTER ? Accession #: ? [id number] ? : ? 1970 (Age: 39) ??F [...] Report ? [facility] 02/18/2010 02/19/2010 us Jones Vega MD PATHOLOGY ORDERABLES Final Res ult [facility] [address] [place] [address] documented in this encounter Visit Diagnoses Not on filedocumented in this encounter Care Teams Real Estate Lawyer Relationship Specialty Start Date End Date Unknown, Provider, PCP - General 02/03/09 documented as of this encounter
[2024-04-16 19:31] LABS: TSH 4.76 uIU/mL (0.36-3.74)
== END 2024-04-16 15:59 | disposition home or self-care (01) ==
LOC: NCHCN 15:58
PROVIDERS: PCP Nurse Practitioner Family; Visit Provider Nurse Practitioner Family
DX: E03.9 Hypothyroidism, unspecified (principal)
CPT/HCPCS: 84443

== ENCOUNTER 2024-07-16 15:09 | Outpatient (REF) | payer OTHER, SELFPAY | END 2024-07-16 15:10 | disposition home or self-care (01) | LOC: NCHCN 15:09 | PROVIDERS: PCP Nurse Practitioner Family; Visit Provider Nurse Practitioner Family | DX: E03.9 Hypothyroidism, unspecified (principal) | CPT/HCPCS: 84443 ==

== ENCOUNTER 2024-10-15 16:47 | Outpatient (REF) | payer OTHER, SELFPAY ==
[2024-10-15 19:29] LABS: ALT 35 U/L (14-59); AST 23 U/L (15-37); Albumin 3.7 g/dL (3.4-5.0); Alkaline Phosphatase 85 U/L (46-116); Anion Gap 7.8 mmol/L (3-11); BUN 12 mg/dL (7-18); Bilirubin, Total 0.5 mg/dL (0.2-1.0); CO2 27.2 mmol/L (21.0-32.0); Calcium 9.1 mg/dL (8.5-10.1); Chloride 103 mmol/L (98-107); Estimated GFR 101.44 (mL/min/1.73m2); Glucose 93 mg/dL (74-106); Potassium 4.4 mmol/L (3.5-5.1); Sodium 138 mmol/L (136-145); Total Protein 7.2 g/dL (6.4-8.2)
== END 2024-10-15 16:48 | disposition home or self-care (01) ==
LOC: NCHCN 16:47
PROVIDERS: PCP Nurse Practitioner Family; Visit Provider Nurse Practitioner Family
DX: E66.9 Obesity, unspecified (principal)
CPT/HCPCS: 80053